=== PATIENT | female | born 1995 | race Caucasian/White ===

== ENCOUNTER 2020-06-15 09:48 | Inpatient (IN) ==
[2020-06-15] MEDS ORDERED: OXYTOCIN 30 UNITS/500 ML BAG IV PRN (09:58)
--- NOTE | 2020-06-15 10:11 | Labor Progress Brief Note ---
Date of Service June 15, 2020 Subjective Patient arrives screaming in pain with contractions, puffing hard between them. Has LOF since 8am, clear to bloody. Ctx Q2min painful. Chart quickly reviewed, is P1 with prior early delivery and preeclampsia in last . Baby for adoption. Accompanied today by sister. GDM diet controlled in this and no hypertensive disease currently. Assessment & Plan (1) Normal labor and delivery: Admission and Anticipated Discharge Date Admission Date: Manage expectantly, admit / labs / epidural if possible. Physical Exam Physical Exam: Was 6cm on arrival per RN; 7cm/100/+1 on my check when patient c/o need to push. FHT Cat 1 LOF clear / bloody Ctx 2min Coding Level of Care Code None Diagnoses Normal labor and delivery O80
[2020-06-15] MEDS ORDERED: LIDOCAINE HCL 1% 20 ML VIAL ONE (10:32)
--- NOTE | 2020-06-15 10:49 | Delivery Summary ---
Vaginal Delivery Summary Date of Service June 15, 2020 Vaginal Delivery Summary DIAGNOSES: 1. Castano intrauterine at 38w6d gestation. 2. Spontaneous onset of labor. 3. Group B Streptococcus Neg. PROCEDURE: Spontaneous vaginal delivery and repair of second degree laceration. SURGEON: Thuy Stern MD. NON EMERGENCY SERVICES AMBULANCE DRIVER: None. ESTIMATED BLOOD LOSS: 350 mL. COMPLICATIONS: None. PLACENTA: Spontaneous and intact with a 3-vessel cord. DISPOSITION: Stable to labor and delivery. DESCRIPTION: The patient pushed well and brought the head to in DOA position. The infant's head delivered with the perineum protected during this time. The shoulders did not immediately follow, so the patient was placed in Tri position and suprapubic pressure was employed. The anterior shoulder delivered with the next few maternal efforts. There was no nuchal cord. The right shoulder was anterior. The shoulders and body delivered without any difficulty, and the infant was placed on the maternal abdomen. The cord was doubly clamped by the MD and cut, then the baby was taken promptly to the warmer for attention. Cord gases were collected. The placenta delivered spontaneously and was noted to be intact and with a 3VC. The cervix, vagina and perineum were examined and were found to have a second degree laceration. 1% plain lidocaine was infiltrated through the area, and then repair proceeded with 2-0 vicryl in the usual manner, including a crown stitch in the perineal body. The fundus was firm and lochia minimal immediately after delivery. [facility] [place] [facility] [place]aginal Delivery Charge Vaginal Delivery Codes: 99476 global code for the antepartum, delivery, and post-
[2020-06-15] MEDS ORDERED: HYDROCORTISONE ACETATE 25 MG SUPP PR PRN (11:07)
[2020-06-15] MEDS ORDERED: oxyCODONE/ACETAMINOPHEN 5mg/325mg TAB PO PRN (11:07)
[2020-06-15] MEDS ORDERED: ACETAMINOPHEN 325 MG TAB PO PRN (11:07)
[2020-06-15] MEDS ORDERED: SUPERCREAM 0.870% 15 GM JAR EXT PRN (11:07)
[2020-06-15] MEDS ORDERED: DIPHTHERIA/TETANUS/PERTUSSIS 0.5 ML SYR/VIAL IM ONE (11:07)
[2020-06-15] MEDS ORDERED: BENZOCAINE 20% AER SPR 82.5 GM CAN EXT PRN (11:07)
[2020-06-15 11:31] LABS: Base Excess Cord Arterial Bld -4.9 mEq/L (-9-1.8); CO2 Cord Arterial Blood 54 mmHg (39.1-73.5); HCO3 Cord Arterial Blood 23 mmol/L (19.7-28.5); Oxygen Sat Cord Arterial Blood < 60.0 % (<60); PO2 Cord Arterial Blood 24 mmHg (4.1-31.7); pH Cord Arterial Blood 7.25 (7.1-7.38)
[2020-06-15] MEDS ORDERED: LABETALOL HCL IV 5 MG/ML 20ML IV STA (11:53)
[2020-06-15 12:20] LABS: Basophils # (auto) 0.03 K/uL (0-0.2); Basophils % (auto) 0.1 %; Eosinophils # (auto) 0.01 K/uL (0-0.5); Hematocrit (blood only) 35.4 % (37-47); Hemoglobin 11.3 g/dL (12.0-16.0); Immature Granulocytes # (auto) 0.13 K/uL (0.00-0.02); Immature Granulocytes % (auto) 0.6 %; Lymphocytes # (auto) 1.18 K/uL (1.2-3.4); Lymphocytes % (auto) 5.7 %; Mean Corpuscular Hemoglobin 27.5 pg (25-34); Mean Corpuscular Volume 86.1 fL (80-100); Monocytes # (auto) 0.98 K/uL (0.11-0.59); Monocytes % (auto) 4.7 %; Neutrophils # (auto) 18.55 K/uL (1.4-6.5); Neutrophils % (auto) 88.9 %; Platelet Count 180 K/uL (130-400); RDW Coefficient of Variation 13.5 % (11.5-14.5); RDW Standard Deviation 42.7 fL (36.4-46.3); Red Blood Count 4.11 M/uL (4.2-5.4); White Blood Count 20.88 K/uL (4.8-10.8)
[2020-06-15 12:22] LABS: Mean Corpuscular Hgb Conc 31.9 g/dL (32-36)
[2020-06-15 12:30] LABS: INR 0.9 (0.9-1.1); Partial Thromboplastin Ratio 0.8; Partial Thromboplastin Time 21.9 Seconds (21.0-31.0); Prothrombin Time 9.9 Seconds (9.0-12.0)
[2020-06-15] MEDS: IBUPROFEN 600 MG TAB PO PRN ×2 (12:31→18:59)
[2020-06-15 12:33] LABS: Albumin Level 2.1 gm/dl (3.4-5.0); Creatinine Clr Calc Pharmacy 98.9 ml/min; Est GFR (African American) 127.5; Uric Acid 4.7 mg/dl (2.6-7.2)
[2020-06-15 12:36] LABS: Bilirubin Direct 0.2 mg/dl (0-0.2); Bilirubin,Total 0.5 mg/dl (0.2-1); Total Protein 6.5 gm/dl (6.4-8.2)
[2020-06-15] MEDS ORDERED: MAG SULFATE 4GM BOLUS FROM BAG IV ONE (12:45)
--- NOTE | 2020-06-15 12:50 | Communication Note ---
Date of Service: June 15, 2020 Patient noted to have severe range elevated BP that began after the delivery. She was not in pain or distress at the time, so Labetalol and PIH labs were ordered. BP improved without labetalol so that dose was held / never given. However labs reflect severe preeclampsia. Diagnosis explained to patient and precautions / Magnesium started.
[2020-06-15] MEDS ORDERED: LIDOCAINE 2% JELLY 5 ML TUBE ONE (13:00)
[2020-06-15] MEDS: LACTATED RINGER'S 1,000 ML IV PRN (13:30)
[2020-06-15] MEDS: MAGNESIUM SULFATE / WTR 40 GM/1,000 ML BAG IV SCH (13:30)
[2020-06-15 14:04] LABS: Creatinine Urine Random 38.9 mg/dl; Protein Creatinine Ratio Urine 1.7 (0-0.2); Total Protein Urine Random 66.5 mg/dl (0-11.9)
[2020-06-15] MEDS: DOCUSATE SODIUM 100 MG CAP PO SCH (21:06)
[2020-06-16] MEDS: LACTATED RINGER'S 1,000 ML IV PRN (02:14)
--- NOTE | 2020-06-16 06:27 | Obstetrical Progress Note ---
Date of Service <Pat Gibson - Last Filed: 06/16/20 07:12> June 16, 2020 Assessment & Plan <Pat Gibson - Last Filed: 06/16/20 07:12> (1) state: - PNL: Rh pos, RI, GBS neg, COVID neg - pre-eclampsia, started on magnesium. Will plan to d/c mag at 24 hours today. - Plan to d/c aparicio catheter later today after d/c mag. - Continue to monitor O2 saturations, supplemental oxygen prn to maintain sats > 92% - Continue diet progression as tolerated. - Plan for OOB later today after d/c mag. - Pain well controlled with ibuprofen 600mg Q4H PRN - After discharge will have 6 week follow-up with Dr. Stern. (2) Pre-eclampsia, : Subjective <Patshiloh Gibson - Last Filed: 06/16/20 07:12> christa Chan is a 25 y/o female who is PPD #1 following spontaneous vaginal delivery at 38 and 6/7 weeks. She reports feeling "okay" overall this morning. Patient did develop severe pospartum pre-eclampsia after delivery yesterday and she was started on magnesium. The magnesium is continuing to infuse at this time. Patient does report some mild SOB that is exacerbated with eating ice chips. However, she has been able to tolerate meals well since yesterday without nausea or vomiting. Patient reports mild abdominal cramping and 2/10 pain well managed on analgesics. Still with urinary catheter in place and has not yet been OOB. She is passing gas. Has persistent lochia with some improvement this morning. Patient is adopting the baby out and will not be . Review of Systems Denies fever or chills. Denies cough. Denies chest pain. Denies breast pain. Denies dysuria. Denies leg pain or leg swelling. Denies headache or changes in vision. Physical Exam <Pat Gibson DO - Last Filed: 06/16/20 07:12> General: Alert, oriented. No acute distress. Cardiac: Regular rate and rhythm. No murmurs. Respiratory: Clear to auscultation bilaterally a/p, no wheezes/rales/rhonchi. No increased work of breathing. Symmetrical chest rise. No respiratory distress. Abdomen: Soft, nontender, nondistended. Bowel sounds present. Uterus: Uterine fundus firm, palpable 1 cm above umbilicus. Lower Extremities: Thigh-high SCDs are in place. No lower extremity edema or swelling. No deep calf pain. Dom's negative bilaterally. Neuro: 2+ patellar reflex Results & Data ([facility]) <Pat Gibson, - Last Filed: 06/16/20 07:12> Vital Signs (Past 12 Hours) Vital Signs Temp Pulse Resp BP Pulse Ox 06/16/20 06:16 72 122/66 06/16/20 06:15 75 89 L 06/16/20 06:10 83 91 06/16/20 06:05 75 96 06/16/20 06:03 80 94 06/16/20 06:00 86 91 06/16/20 05:55 76 91 06/16/20 05:50 79 91 06/16/20 05:45 82 95 06/16/20 05:43 93 H 94 06/16/20 05:40 97 H 95 06/16/20 05:35 89 96 06/16/20 05:32 98 H 94 06/16/20 05:30 97 H 95 06/16/20 05:26 95 H 94 06/16/20 05:25 93 H 94 06/16/20 05:20 79 94 06/16/20 05:16 78 121/77 06/16/20 05:15 84 18 93 06/16/20 05:12 75 93 06/16/20 05:10 83 92 06/16/20 05:05 81 92 06/16/20 05:00 78 89 L 06/16/20 04:55 79 92 06/16/20 04:50 77 92 06/16/20 04:49 84 94 06/16/20 04:45 82 90 06/16/20 04:40 79 91 06/16/20 04:35 82 92 06/16/20 04:30 76 93 06/16/20 04:25 83 89 L 06/16/20 04:20 81 91 06/16/20 04:16 76 112/65 06/16/20 04:15 81 16 92 06/16/20 04:10 86 91 06/16/20 04:05 87 88 L 06/16/20 04:00 85 90 06/16/20 03:55 85 92 06/16/20 03:50 83 92 06/16/20 03:45 83 90 06/16/20 03:40 83 92 06/16/20 03:35 84 93 06/16/20 03:30 90 92 06/16/20 03:29 87 93 06/16/20 03:25 95 H 92 06/16/20 03:22 83 93 06/16/20 03:20 80 92 06/16/20 03:16 91 H 121/67 06/16/20 03:15 36.7 C 81 16 90 06/16/20 03:11 90 91 06/16/20 03:10 82 91 06/16/20 03:05 85 89 L 06/16/20 03:00 85 90 06/16/20 02:55 86 90 06/16/20 02:50 88 88 L 06/16/20 02:45 86 90 06/16/20 02:40 82 90 06/16/20 02:35 86 90 06/16/20 02:30 89 89 L 06/16/20 02:25 79 90 06/16/20 02:20 79 91 06/16/20 02:16 77 125/66 06/16/20 02:15 75 14 92 06/16/20 02:10 78 90 06/16/20 02:05 96 H 92 06/16/20 02:00 97 H 92 06/16/20 01:56 83 94 06/16/20 01:55 82 94 06/16/20 01:51 79 93 06/16/20 01:50 79 94 06/16/20 01:45 73 93 06/16/20 01:40 77 92 06/16/20 01:35 85 93 06/16/20 01:31 94 H 94 06/16/20 01:30 102 H 98 06/16/20 01:25 94 H 95 06/16/20 01:23 88 93 06/16/20 01:20 94 H 94 06/16/20 01:18 88 93 06/16/20 01:15 86 18 127/82 94 06/16/20 01:13 92 H 94 06/16/20 01:10 85 85 L 06/16/20 01:07 89 92 06/16/20 01:05 80 92 06/16/20 01:00 90 125/86 89 L 06/16/20 00:55 82 88 L 06/16/20 00:50 80 90 06/16/20 00:45 80 90 06/16/20 00:40 79 89 L 06/16/20 00:35 81 88 L 06/16/20 00:30 78 121/70 90 06/16/20 00:25 82 89 L 06/16/20 00:20 93 H 89 L 06/16/20 00:15 92 H 14 92 06/16/20 00:10 82 92 06/16/20 00:06 83 94 06/16/20 00:05 85 93 06/16/20 00:00 77 126/77 94 06/15/20 23:59 79 94 06/15/20 23:55 80 94 06/15/20 23:52 82 94 06/15/20 23:50 86 97 06/15/20 23:45 91 H 98 06/15/20 23:43 98 H 93 06/15/20 23:40 81 96 06/15/20 23:38 88 90 06/15/20 23:35 78 98 06/15/20 23:30 73 136/90 98 06/15/20 23:25 92 H 98 06/15/20 23:20 80 98 06/15/20 23:15 36.8 C 81 16 99 06/15/20 23:10 81 98 06/15/20 23:08 85 149/97 H 06/15/20 23:05 82 98 06/15/20 23:00 81 14 99 06/15/20 22:55 98 H 100 06/15/20 22:52 97 H 147/104 H 06/15/20 22:50 88 100 06/15/20 22:45 88 100 06/15/20 22:41 83 146/101 H 06/15/20 22:40 95 H 99 06/15/20 22:37 92 H 153/116 H 06/15/20 22:35 87 100 06/15/20 22:30 90 99 06/15/20 22:25 87 141/93 H 99 06/15/20 22:20 91 H 99 06/15/20 22:15 85 99 06/15/20 22:10 92 H 98 06/15/20 22:05 83 98 06/15/20 22:00 92 H 16 98 06/15/20 21:55 92 H 98 06/15/20 21:50 86 98 06/15/20 21:48 86 136/86 06/15/20 21:45 86 98 06/15/20 21:40 88 98 06/15/20 21:35 88 98 06/15/20 21:33 94 H 149/92 H 06/15/20 21:30 105 H 98 06/15/20 21:25 94 H 99 06/15/20 21:20 83 99 06/15/20 21:18 85 143/95 H 06/15/20 21:15 98 H 98 06/15/20 21:10 83 100 06/15/20 21:05 86 99 06/15/20 21:03 86 136/89 06/15/20 21:00 88 16 98 06/15/20 20:55 91 H 99 06/15/20 20:50 78 99 06/15/20 20:48 85 127/95 06/15/20 20:45 80 98 06/15/20 20:40 80 98 06/15/20 20:35 89 99 06/15/20 20:33 85 126/86 06/15/20 20:30 79 97 06/15/20 20:25 80 96 06/15/20 20:20 77 98 06/15/20 20:19 80 132/90 06/15/20 20:15 82 98 06/15/20 20:10 86 98 06/15/20 20:05 78 98 06/15/20 20:03 77 123/83 06/15/20 20:00 77 14 98 06/15/20 19:55 75 98 06/15/20 19:50 80 98 06/15/20 19:48 80 129/90 06/15/20 19:45 82 98 06/15/20 19:40 82 99 06/15/20 19:35 82 99 06/15/20 19:33 89 133/90 06/15/20 19:30 86 98 06/15/20 19:25 100 H 98 06/15/20 19:20 85 98 06/15/20 19:18 82 124/80 06/15/20 19:15 91 H 98 06/15/20 19:10 91 H 99 06/15/20 19:05 36.5 C 85 16 99 06/15/20 19:04 94 H 135/82 06/15/20 19:00 95 H 98 06/15/20 18:55 90 97 06/15/20 18:50 98 H 98 06/15/20 18:48 88 121/64 06/15/20 18:45 90 97 06/15/20 18:40 90 96 06/15/20 18:35 90 96 06/15/20 18:33 88 128/69 06/15/20 18:30 87 97 06/15/20 18:25 89 96 06/15/20 18:20 86 97 Laboratory Results 06/15/20 06/15/20 06/15/20 Range/Units Unknown Unknown 13:30 WBC (4.8-10.8) K/uL RBC (4.2-5.4) M/uL Hgb (12.0-16.0) g/dL Hct (37-47) % MCV (80-100) fL MCH (25-34) pg MCHC (32-36) g/dL RDW Std Deviation (36.4-46.3) fL RDW Coeff of Dona (11.5-14.5) % Plt Count (130-400) K/uL Immature Gran % (Auto) % Neut % (Auto) % Lymph % (Auto) % Weber % (Auto) % Eos % (Auto) % Baso % (Auto) % Neut # (Auto) (1.4-6.5) K/uL Lymph # (Auto) (1.2-3.4) K/uL Weber # (Auto) (0.11-0.59) K/uL Eos # (Auto) (0-0.5) K/uL Baso # (Auto) (0-0.2) K/uL Immature Gran # (Auto) (0.00-0.02) K/uL PT (9.0-12.0) Seconds INR (0.9-1.1) APTT (21.0-31.0) Seconds PTT Ratio Cord ABG pH (7.1-7.38) Cord ABG pCO2 (39.1-73.5) mmHg Cord ABG pO2 (4.1-31.7) mmHg Cord ABG HCO3 (19.7-28.5) mmol/L Cord ABG Base Excess (-9-1.8) mEq/L Cord ABG O2 Sat (<60) % Cord VBG pH Cord VBG pCO2 Cord VBG pO2 Cord VBG HCO3 Cord VBG Base Excess Cord VBG O2 Sat Barometric Pressure mm/Hg Blood Gas Comments Creatinine (0.6-1.2) mg/dl Est Cr Clr Drug Dosing ml/min Est GFR ( Amer) Est GFR (Non-Af Amer) Uric Acid (2.6-7.2) mg/dl Total Bilirubin (0.2-1) mg/dl Direct Bilirubin (0-0.2) mg/dl AST (15-37) U/L ALT (12-78) U/L Alkaline Phosphatase (45-117) U/L Lactate Dehydrogenase (84-246) U/L Total Protein (6.4-8.2) gm/dl Albumin (3.4-5.0) gm/dl Ur Random Creatinine 38.9 mg/dl U Random Total Protein 66.5 H (0-11.9) mg/dl Protein/Creatinin Ratio 1.7 H (0-0.2) COVID-19 [facility] SARS-[facility]-2, RNA, NAAT NEGATIVE (NEGATIVE) 06/15/20 06/15/20 06/15/20 Range/Units 11:59 11:59 11:59 WBC (4.8-10.8) K/uL RBC (4.2-5.4) M/uL Hgb (12.0-16.0) g/dL Hct (37-47) % MCV (80-100) fL MCH (25-34) pg MCHC (32-36) g/dL RDW Std Deviation (36.4-46.3) fL RDW Coeff of Dona (11.5-14.5) % Plt Count (130-400) K/uL Immature Gran % (Auto) % Neut % (Auto) % Lymph % (Auto) % Weber % (Auto) % Eos % (Auto) % Baso % (Auto) % Neut # (Auto) (1.4-6.5) K/uL Lymph # (Auto) (1.2-3.4) K/uL Weber # (Auto) (0.11-0.59) K/uL Eos # (Auto) (0-0.5) K/uL Baso # (Auto) (0-0.2) K/uL Immature Gran # (Auto) (0.00-0.02) K/uL PT 9.9 (9.0-12.0) Seconds INR 0.9 (0.9-1.1) APTT 21.9 (21.0-31.0) Seconds PTT Ratio 0.8 Cord ABG pH (7.1-7.38) Cord ABG pCO2 (39.1-73.5) mmHg Cord ABG pO2 (4.1-31.7) mmHg Cord ABG HCO3 (19.7-28.5) mmol/L Cord ABG Base Excess (-9-1.8) mEq/L Cord ABG O2 Sat (<60) % Cord VBG pH Cord VBG pCO2 Cord VBG pO2 Cord VBG HCO3 Cord VBG Base Excess Cord VBG O2 Sat Barometric Pressure mm/Hg Blood Gas Comments Creatinine 0.75 (0.6-1.2) mg/dl Est Cr Clr Drug Dosing 98.9 ml/min Est GFR ( Amer) 127.5 Est GFR (Non-Af Amer) 110.0 Uric Acid 4.7 (2.6-7.2) mg/dl Total Bilirubin 0.5 (0.2-1) mg/dl Direct Bilirubin 0.2 (0-0.2) mg/dl AST 168 H (15-37) U/L ALT 251 H (12-78) U/L Alkaline Phosphatase 318 H (45-117) U/L Lactate Dehydrogenase 272 H (84-246) U/L Total Protein 6.5 (6.4-8.2) gm/dl Albumin 2.1 L (3.4-5.0) gm/dl Ur Random Creatinine mg/dl U Random Total Protein (0-11.9) mg/dl Protein/Creatinin Ratio (0-0.2) COVID-19 Eval Order SARS-CoV-2, RNA, NAAT (NEGATIVE) 06/15/20 06/15/20 06/15/20 Range/Units 11:59 10:27 10:27 WBC 20.88 H (4.8-10.8) K/uL RBC 4.11 L (4.2-5.4) M/uL Hgb 11.3 L (12.0-16.0) g/dL Hct 35.4 L (37-47) % MCV 86.1 (80-100) fL MCH 27.5 (25-34) pg MCHC 31.9 L (32-36) g/dL RDW Std Deviation 42.7 (36.4-46.3) fL RDW Coeff of Dona 13.5 (11.5-14.5) % Plt Count 180 (130-400) K/uL Immature Gran % (Auto) 0.6 % Neut % (Auto) 88.9 % Lymph % (Auto) 5.7 % Weber % (Auto) 4.7 % Eos % (Auto) 0.0 % Baso % (Auto) 0.1 % Neut # (Auto) 18.55 H (1.4-6.5) K/uL Lymph # (Auto) 1.18 L (1.2-3.4) K/uL Weber # (Auto) 0.98 H (0.11-0.59) K/uL Eos # (Auto) 0.01 (0-0.5) K/uL Baso # (Auto) 0.03 (0-0.2) K/uL Immature Gran # (Auto) 0.13 H (0.00-0.02) K/uL PT (9.0-12.0) Seconds INR (0.9-1.1) APTT (21.0-31.0) Seconds PTT Ratio Cord ABG pH 7.25 (7.1-7.38) Cord ABG pCO2 54 (39.1-73.5) mmHg Cord ABG pO2 24 (4.1-31.7) mmHg Cord ABG HCO3 23 (19.7-28.5) mmol/L Cord ABG Base Excess -4.9 (-9-1.8) mEq/L Cord ABG O2 Sat < 60.0 (<60) % Cord VBG pH TNP Cord VBG pCO2 TNP Cord VBG pO2 TNP Cord VBG HCO3 TNP Cord VBG Base Excess TNP Cord VBG O2 Sat TNP Barometric Pressure 738.2 mm/Hg Blood Gas Comments TNP PLASENCIA Creatinine (0.6-1.2) mg/dl Est Cr Clr Drug Dosing ml/min Est GFR ( Amer) Est GFR (Non-Af Amer) Uric Acid (2.6-7.2) mg/dl Total Bilirubin (0.2-1) mg/dl Direct Bilirubin (0-0.2) mg/dl AST (15-37) U/L ALT (12-78) U/L Alkaline Phosphatase (45-117) U/L Lactate Dehydrogenase (84-246) U/L Total Protein (6.4-8.2) gm/dl Albumin (3.4-5.0) gm/dl Ur Random Creatinine mg/dl U Random Total Protein (0-11.9) mg/dl Protein/Creatinin Ratio (0-0.2) COVID-19 Eval Order SARS-CoV-2, RNA, NAAT (NEGATIVE) <Thuy Stern MD - Last Filed: 06/16/20 07:27> Co-Signing Physician Notes I have reviewed the resident's note and examined the patient myself, and agree with the note above. Patient has DTR 2+ for me this morning, no complaints other than typical magnesium effects of fatigue and difficulty focusing her vision. Continue 24hour magnesium therapy. Repeat labs this morning as plts noted to decrease. Resident Activity Tracking <Pat Gibson DO - Last Filed: 06/16/20 07:12> Resident Involvement: Resident Care Provided Care Provided: OB Delivery
[2020-06-16] MEDS: MAGNESIUM SULFATE / WTR 40 GM/1,000 ML BAG IV SCH (07:10)
[2020-06-16] MEDS: PRENATAL VITAMIN 1 TAB PO SCH (07:21)
[2020-06-16] MEDS: DOCUSATE SODIUM 100 MG CAP PO SCH ×2 (07:21→19:39)
[2020-06-16 08:17] LABS: Albumin Level 1.8 gm/dl (3.4-5.0); BUN Creatinine Ratio 9.9 (10-20); Calcium 6.9 mg/dl (8.5-10.1); Creatinine Clr Calc Pharmacy 117.8 ml/min; Est GFR (African American) 143.5; Est GFR (Non-African American) 123.8; Potassium 4.5 mmol/L (3.5-5.1); Uric Acid 4.6 mg/dl (2.6-7.2)
[2020-06-16 08:20] LABS: Albumin Globulin Ratio 0.5 (0.9-2); Bilirubin,Total 0.3 mg/dl (0.2-1); Globulin 3.9 gm/dl (2.5-4.0); Total Protein 5.7 gm/dl (6.4-8.2)
[2020-06-16 09:37] LABS: Basophils # (auto) 0.05 K/uL (0-0.2); Basophils % (auto) 0.4 %; Eosinophils # (auto) 0.05 K/uL (0-0.5); Eosinophils % (auto) 0.4 %; Hematocrit (blood only) 33.4 % (37-47); Hemoglobin 10.5 g/dL (12.0-16.0); Immature Granulocytes # (auto) 0.12 K/uL (0.00-0.02); Immature Granulocytes % (auto) 0.9 %; Lymphocytes # (auto) 2.43 K/uL (1.2-3.4); Lymphocytes % (auto) 17.3 %; Mean Corpuscular Hemoglobin 27.2 pg (25-34); Mean Corpuscular Volume 86.5 fL (80-100); Monocytes # (auto) 1.08 K/uL (0.11-0.59); Monocytes % (auto) 7.7 %; Neutrophils # (auto) 10.35 K/uL (1.4-6.5); Neutrophils % (auto) 73.3 %; Platelet Count 184 K/uL (130-400); RDW Coefficient of Variation 13.8 % (11.5-14.5); RDW Standard Deviation 43.5 fL (36.4-46.3); Red Blood Count 3.86 M/uL (4.2-5.4); White Blood Count 14.08 K/uL (4.8-10.8)
[2020-06-16 10:07] LABS: Mean Corpuscular Hgb Conc 31.4 g/dL (32-36)
[2020-06-16] MEDS: IBUPROFEN 600 MG TAB PO PRN ×2 (16:17→21:39)
[2020-06-17 06:32] LABS: Basophils # (auto) 0.04 K/uL (0-0.2); Basophils % (auto) 0.3 %; Eosinophils % (auto) 0.7 %; Hematocrit (blood only) 32.2 % (37-47); Hemoglobin 10.1 g/dL (12.0-16.0); Immature Granulocytes # (auto) 0.17 K/uL (0.00-0.02); Immature Granulocytes % (auto) 1.2 %; Lymphocytes # (auto) 2.95 K/uL (1.2-3.4); Lymphocytes % (auto) 21.3 %; Mean Corpuscular Hemoglobin 27.2 pg (25-34); Mean Corpuscular Hgb Conc 31.4 g/dL (32-36); Mean Corpuscular Volume 86.8 fL (80-100); Mean Platelet Volume 13.4 fL (7.4-10.4); Monocytes # (auto) 1.05 K/uL (0.11-0.59); Monocytes % (auto) 7.6 %; Neutrophils # (auto) 9.56 K/uL (1.4-6.5); Neutrophils % (auto) 68.9 %; Platelet Count 209 K/uL (130-400); RDW Coefficient of Variation 13.7 % (11.5-14.5); RDW Standard Deviation 43.5 fL (36.4-46.3); Red Blood Count 3.71 M/uL (4.2-5.4); White Blood Count 13.87 K/uL (4.8-10.8)
--- NOTE | 2020-06-17 06:41 | Obstetrical Progress Note ---
Date of Service <Pat Gibson DO - Last Filed: 06/17/20 07:42> June 17, 2020 Assessment & Plan <Pat Gibson DO - Last Filed: 06/17/20 07:42> (1) state: - PNL: Rh pos, RI, GBS neg, COVID neg - Baby has been d/c with adoptive parents - Patient reporting some anxiety and "panic" after this delivery. Denies hx of similar anxiety after previous delivery. She is concerned about these feelings. Hx of anxiety but no anxiolytics or antidepressants per patient. Will get psych consult prior to d/c. - Otherwise feels well today. Eating well, voiding well, ambulating well. - Pain well controlled with ibuprofen 600mg Q4H PRN - Routine vaginal delivery care -- OOB, ambulation, diet progression as tolerated - After discharge will have 6 week follow-up with Dr. Stern. (2) Pre-eclampsia, : - Magnesium was discontinued at 1330 yesterday - BPs have been well controlled - Pt denies c/o headache, dizziness, lightheadedness, or changes in vision - No further medications or management required at this time. Subjective <Pat Gibson DO - Last Filed: 06/17/20 07:42> Rose Marie Chan is a 25 y/o female who is PPD #2 following spontaneous vaginal delivery at 38 and 6/7 weeks. She reports feeling okay but tired overall this morning. Patient does note that she woke up around 0430 this morning with a "panic attack" shaking and remembering the pain of labor; she denies a hx of panic attacks but does note that she has had some mild anxiety in the past. Mild abdominal cramping and 4/10 pain well managed on analgesics. Voiding without dysuria. Tolerating meals overnight without difficulty. Patient has been able to ambulate some. She is passing gas. Has persistent lochia with some improvement this morning. Review of Systems Denies fever or chills. Denies shortness of breath or cough. Denies chest pain. Denies breast pain. Denies dysuria. Denies leg pain or leg swelling. Denies headache or changes in vision. Physical Exam <Pat Gibson DO - Last Filed: 06/17/20 07:42> General: Alert, oriented. No acute distress. Cardiac: Regular rate and rhythm. No murmurs. Respiratory: Clear to auscultation bilaterally a/p, no wheezes/rales/rhonchi. No increased work of breathing. Symmetrical chest rise. No respiratory distress. Abdomen: Soft, nontender, nondistended. Bowel sounds present. Uterus: Uterine fundus firm, palpable 1 cm below umbilicus. Lower Extremities: No lower extremity edema or swelling. No deep calf pain. Dom's negative bilaterally. Results & Data ([facility]) <Pat Gibson, - Last Filed: 06/17/20 07:42> Vital Signs (Past 12 Hours) Vital Signs Temp Pulse Resp BP Pulse Ox 06/16/20 23:25 36.9 C 85 16 131/75 97 06/16/20 19:35 36.6 C 90 16 118/81 95 Laboratory Results 06/17/20 06/17/20 06/16/20 Range/Units 06:09 06:09 07:39 WBC 13.87 H (4.8-10.8) K/uL RBC 3.71 L (4.2-5.4) M/uL Hgb 10.1 L (12.0-16.0) g/dL Hct 32.2 L (37-47) % MCV 86.8 (80-100) fL MCH 27.2 (25-34) pg MCHC 31.4 L (32-36) g/dL RDW Std Deviation 43.5 (36.4-46.3) fL RDW Coeff of Dona 13.7 (11.5-14.5) % Plt Count 209 (130-400) K/uL MPV 13.4 H (7.4-10.4) fL Immature Gran % (Auto) 1.2 % Neut % (Auto) 68.9 % Lymph % (Auto) 21.3 % [place] % (Auto) 7.6 % Eos % (Auto) 0.7 % Baso % (Auto) 0.3 % Neut # (Auto) 9.56 H (1.4-6.5) K/uL Lymph # (Auto) 2.95 (1.2-3.4) K/uL [place] # (Auto) 1.05 H (0.11-0.59) K/uL Eos # (Auto) 0.10 (0-0.5) K/uL Baso # (Auto) 0.04 (0-0.2) K/uL Immature Gran # (Auto) 0.17 H (0.00-0.02) K/uL Sodium 136 (136-145) mmol/L Potassium 4.5 (3.5-5.1) mmol/L Chloride 104 (98-107) mmol/L Carbon Dioxide 22 (21-32) mmol/L Anion Gap 10.0 (3-11) BUN 6 L (7-18) mg/dl Creatinine 0.61 0.63 (0.6-1.2) mg/dl Est Cr Clr Drug Dosing 121.6 117.8 ml/min Est GFR ( Amer) 145.0 143.5 Est GFR (Non-Af Amer) 125.1 123.8 BUN/Creatinine Ratio 9.9 L (10-20) Glucose 87 (70-99) mg/dl Uric Acid 4.6 (2.6-7.2) mg/dl Calcium 6.9 L (8.5-10.1) mg/dl Total Bilirubin 0.4 0.3 (0.2-1) mg/dl Direct Bilirubin Pending AST 84 H 128 H (15-37) U/L ALT 180 H 212 H (12-78) U/L Alkaline Phosphatase 265 H 276 H (45-117) U/L Total Protein 5.8 L 5.7 L (6.4-8.2) gm/dl Albumin 1.8 L 1.8 L (3.4-5.0) gm/dl Globulin 3.9 (2.5-4.0) gm/dl Albumin/Globulin Ratio 0.5 L (0.9-2) 06/16/20 Range/Units 07:37 WBC 14.08 H (4.8-10.8) K/uL RBC 3.86 L (4.2-5.4) M/uL Hgb 10.5 L (12.0-16.0) g/dL Hct 33.4 L (37-47) % MCV 86.5 (80-100) fL MCH 27.2 (25-34) pg MCHC 31.4 L (32-36) g/dL RDW Std Deviation 43.5 (36.4-46.3) fL RDW Coeff of Dona 13.8 (11.5-14.5) % Plt Count 184 (130-400) K/uL MPV (7.4-10.4) fL Immature Gran % (Auto) 0.9 % Neut % (Auto) 73.3 % Lymph % (Auto) 17.3 % [place] % (Auto) 7.7 % Eos % (Auto) 0.4 % Baso % (Auto) 0.4 % Neut # (Auto) 10.35 H (1.4-6.5) K/uL Lymph # (Auto) 2.43 (1.2-3.4) K/uL [place] # (Auto) 1.08 H (0.11-0.59) K/uL Eos # (Auto) 0.05 (0-0.5) K/uL Baso # (Auto) 0.05 (0-0.2) K/uL Immature Gran # (Auto) 0.12 H (0.00-0.02) K/uL Sodium (136-145) mmol/L Potassium (3.5-5.1) mmol/L Chloride (98-107) mmol/L Carbon Dioxide (21-32) mmol/L Anion Gap (3-11) BUN (7-18) mg/dl Creatinine (0.6-1.2) mg/dl Est Cr Clr Drug Dosing ml/min Est GFR ( Amer) Est GFR (Non-Af Amer) BUN/Creatinine Ratio (10-20) Glucose (70-99) mg/dl Uric Acid (2.6-7.2) mg/dl Calcium (8.5-10.1) mg/dl Total Bilirubin (0.2-1) mg/dl Direct Bilirubin AST (15-37) U/L ALT (12-78) U/L Alkaline Phosphatase (45-117) U/L Total Protein (6.4-8.2) gm/dl Albumin (3.4-5.0) gm/dl Globulin (2.5-4.0) gm/dl Albumin/Globulin Ratio (0.9-2) <Harini Arellano MD, FACOG - Last Filed: 06/17/20 08:06> Co-Signing Physician Notes Resident Physician Supervision Note: I was present with Dr. Gibson during the history and exam. I discussed the case with the resident and agree with the findings and plan as documented in the note. Any exceptions or clarifications are listed here: [None] Documented By: Harini Arellano MD, FACOG Resident Activity Tracking <Pat Gibson, DO - Last Filed: 06/17/20 07:42> Resident Involvement: Resident Care Provided Care Provided: OB Delivery
[2020-06-17 07:08] LABS: Alanine Aminotransferase 180 U/L (12-78); Albumin Level 1.8 gm/dl (3.4-5.0); Aspartate Aminotransferase 84 U/L (15-37); Creatinine Clr Calc Pharmacy 121.6 ml/min; Est GFR (Non-African American) 125.1
[2020-06-17 07:11] LABS: Alkaline Phosphatase 265 U/L (45-117); Bilirubin,Total 0.4 mg/dl (0.2-1); Total Protein 5.8 gm/dl (6.4-8.2)
[2020-06-17 08:22] LABS: Bilirubin Direct < 0.1 mg/dl (0-0.2)
[2020-06-17] MEDS: IBUPROFEN 600 MG TAB PO PRN (08:34)
[2020-06-17] MEDS: PRENATAL VITAMIN 1 TAB PO SCH (08:35)
[2020-06-17] MEDS: DOCUSATE SODIUM 100 MG CAP PO SCH (08:35)
--- NOTE | 2020-06-17 09:42 | Psychiatric Consultation ---
Date of Consultation June 17, 2020 Impression / Recommendations Impression 25-year-old single female who had a panic attack overnight after a quickly progressing, painful . No other mood or anxiety symptoms, no psychiatric history. Reassurance provided that this is a normal response to a traumatic event, and that anxiety will likely resolve on its own. Reviewed coping strategies for anxiety, including importance of good self-care, adequate sleep, relaxation techniques, and involvement of her supports. Psychiatric treatment/follow-up not indicated, but we will give her the [facility] mental health resources booklet, in case symptoms continue/worsen. She would benefit from psychosocial supports, as she does not have a psychiatric diagnosis she is not eligible for a mental health cattle sticker, but hopefully she could obtain support through her OB clinic or insurance, as she indicates limited supports and financial barriers. She does indicate a desire to explore contraception options to prevent unplanned . Thank you for the consult, please contact me with further questions. Risk Factors Assessment Male: No : Yes Do You Have Access To A Gun?: No Health Problems: No Mental Health Diagnoses: No Substance Use Disorders: No Previous Attempt: No Previous Psychiatric Hospitalization: No Hopelessness: No Smoker: No Protective Factors Assessment : No Responsible for Young Children: No Employed: Yes Supportive Family: Yes Absence of Any Risk Factors Above: No (No psychiatric diagnosis, no mental health history, no current mood symptom) Psych History Identifying Data 25-year-old single female with no psychiatric history who is day 2 from spontaneous vaginal delivery, psychiatry consulted for anxiety. Chief Complaint "I woke up a couple of times, I think it's the natural and staff, I never felt like that". History of Present Illness Review of records indicates patient was admitted 06/15/2020 in active labor, sustained a second-degree laceration, and severely elevated blood pressure after the delivery. She was diagnosed with preeclampsia and treated with magnesium. Overnight, she awoke with anxiety, and a psychiatric consult was ordered. On my assessment, she states that she woke up twice overnight feeling "shaken" by the , stating that it progressed very quickly and was very painful, more pain than what she had expected. She has had 1 other delivery, for which she had an epidural, and although she had watch some videos about natural childbirth, said she did not expect it to be so painful. She describes waking up overnight, thinking about the delivery and feeling shaky, heart racing, shortness of breath, mild chest pain, and tearfulness. It lasted for minutes, distraction helped (TV, visualization). She denies ever having panic attacks in the past, and denies any history of anxiety or depression. No SI or HI, symptoms of psychosis or giancarlo. She reports that she had low mood and negative thoughts about herself that lasted for 1 day at the beginning of her , but resolved after she talked with her sister. She reports good support from her sister, but no other supports, noting she moved here from [place] about a year ago to be close to her sister. She works at [employer], and will be off until the end of July, but it is unpaid leave, and finances are a stressor. She states that she feels good about her decision to give her baby for abduction, stating "I feel blessed," and denies feeling anxious or distressed about this. She states labor pain was the only trigger for her anxiety. She hopes that she might have a baby of her own someday, "if I can find the right person next time," but states in the interim she "wants to be more careful this time." She has not yet discussed contraception with her hat sizer, and states that finances have been a barrier for her to get oral contraceptives in the past. She states she understands the plan for her suture care and outpatient follow-up. She does not feel she needs mental health treatment or services at this time. Past Psychiatric History Previous Psych History: None Do You Have Access To A Gun?: No History of Previous Suicide Attempt: Yes Allergies Allergy/AdvReac Type Severity Reaction Status Date / Time No Known Allergies Allergy Verified 06/15/20 11:02 Home Medications Home Medications Medication Instructions Recorded Confirmed Type prenat.vits,delma,nuf-gghx-kgzpu 1 tab PO DAILY 01/18/20 06/15/20 History blood sugar diagnostic #150 ea 04/28/20 06/05/20 Rx blood-glucose meter #1 ea 04/28/20 06/05/20 Rx lancets 33 gauge #150 ea 04/28/20 06/05/20 Rx acetone (urine) test #50 ea 05/01/20 06/05/20 Rx norgestimate-ethinyl estradiol 1 tab PO DAILY #28 tab 06/17/20 Rx [Ortho Tri-Cyclen (28)] Substance Abuse History Patient denies alcohol, tobacco, drug use. Personal History Living Arrangements: Home Living Arrangements Comments: Alone in [place]. 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[employer]) Beliefs That Will Affect Care: None Patient History Medical History (Updated 06/17/20 @ 09:33 by Preet Guadalupe Jr, MD, FACOG) Encounter for anatomic survey Hx of varicella Preeclampsia Vaginal delivery Surgical History H/O oral surgery Family History (Updated 01/18/20 @ 10:55 by Laura Last) Other No pertinent family history Social History Smoking Status: Never smoker Hx Alcohol Use: No Hx Substance Use: No Preferred Language: Amharic Communication Ability: Effective 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 Beliefs That Will Affect Care: None marital status: Single marital status details: FOB- not in picture Current Living Situation: Alone Current Living Situation Comment: lives with roommate, no pets current occupational status: employed current occupation: [employer] Other Information That Helps Us Care for You: No Feels Safe at Home: Yes Assistive Devices: None Physical Exam Psychiatric: Orientation: alert and cooperative Apperance: appropriately dressed, appropriately groomed and appeared stated age Eye Contact: good eye contact Motor Behavior: no abnormal motor movements Speech: normal rate/rhythm/volume of speech Affect: euthymic affect and mood congruent with affect Mood: no depressed mood and no anxious mood Thought Process: goal directed thought process Thought Content: reality based without delusions Suicidal Thoughts: denies suicidal thoughts Homicidal Thoughts: denies homicidal thoughts Hallucinations: no auditory hallucinations Cognition: recent memory grossly intact, attention grossly intact and language grossly intact Insight: + fair insight Judgement: + fair judgement Vital Signs (Past 24 Hours): Last Vital Signs Temp 36.9 C 06/16/20 23:25 Pulse 85 06/16/20 23:25 Resp 16 06/16/20 23:25 BP 131/75 06/16/20 23:25 Pulse Ox 97 06/16/20 23:25 Review of Systems All systems reviewed & are unremarkable except as noted in Subjective Results & Data (PSY) Medications Administered Acetaminophen (Acetaminophen 325 Mg Tab) 650 mg PO Q6H PRN PRN Reason: Pain/ELIZABETH/Fever Stop: 07/15/20 11:06 Last Admin: 06/15/20 21:09 Dose: 650 mg Documented by: [id number] Benzocaine (Benzocaine 20% Aer Spr 82.5 Gm Can) 1 appln EXT PRN PRN PRN Reason: Perineal Discomfort Stop: 07/15/20 11:06 Last Admin: 06/15/20 21:30 Dose: 1 appln Documented by: [id number] Docusate Sodium (Docusate Sodium 100 Mg Cap) 100 mg PO DAILY@08, [facility] Stop: 07/15/20 20:59 Last Admin: 06/17/20 08:35 Dose: 100 mg Documented by: [id number] Admin: 06/16/20 19:39 Dose: Not Given Documented by: [id number] Admin: 06/16/20 07:21 Dose: 100 mg Documented by: [id number] Admin: 06/15/20 21:06 Dose: 100 mg Documented by: [id number] Ibuprofen (Ibuprofen 600 Mg Tab) 600 mg PO Q4H PRN PRN Reason: Pain/ELIZABETH/Cramping/Fever Stop: 07/15/20 11:06 Last Admin: 06/17/20 08:34 Dose: 600 mg Documented by: [id number] Admin: 06/16/20 21:39 Dose: 600 mg Documented by: [id number] Admin: 06/16/20 16:17 Dose: 600 mg Documented by: [id number] Admin: 06/15/20 18:59 Dose: 600 mg Documented by: [id number] Admin: 06/15/20 12:31 Dose: 600 mg Documented by: [id number] Oxycodone/Acetaminophen (Oxycodone/Acetaminophen 5mg/325mg Tab) 1 tab PO Q4H PRN PRN Reason: Pain not relieved by... Stop: 06/29/20 11:06 Last Admin: 06/15/20 13:25 Dose: 1 tab Documented by: [id number] Prenat Multivit/[place]/Iron/Folic Ac ( Vitamin 1 Tab) 1 tab PO DAILY@08 GIL Stop: 07/16/20 07:59 Last Admin: 06/17/20 08:35 Dose: 1 tab Documented by: [id number] Admin: 06/16/20 07:21 Dose: 1 tab Documented by: [id number] Coding Level of Care Code 15934 [facility]l H[facility] Care Lvl 2
== END 2020-06-17 12:59 | disposition home or self-care (01) | DRG 807 ==
LOC: OPB 09:48 → 4S1 09:54 → 4S2 06-16 16:10